=== PATIENT | male | born 1945 | race Caucasian/White ===

== ENCOUNTER 2016-06-30 18:10 | Emergency (ER) | payer MEDICARE, OTHER ==
[~2016-06-30] VITALS: Ht 177.8 cm; Wt 93.0 kg
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
[2016-06-30] MEDS ORDERED: FLUT15.88 NS (18:34)
[2016-06-30] MEDS ORDERED: CLON0.2T PO (18:34)
[2016-06-30] MEDS ORDERED: ATEN50TA PO (18:34)
[2016-06-30] MEDS ORDERED: MAG1CAPS4 PO (18:34)
[2016-06-30] MEDS ORDERED: HYDR25TA4 PO (18:34)
[2016-06-30] MEDS ORDERED: ALLO300T2 PO (18:34)
[2016-06-30] MEDS ORDERED: TERB30CR15 TP (18:34)
[2016-06-30 18:55] LABS: BASOPHILS % (AUTO) 0 % (0-10); EOSINOPHILS # (AUTO) 0.1 10^3/uL (0.0-0.3); EOSINOPHILS % (AUTO) 1 % (0-10); LYMPHOCYTES % (AUTO) 13 % (12-44); MEAN CORPUSCULAR HEMOGLOBIN 33 PG (25-34); MEAN CORPUSCULAR HGB CONC 34 G/DL (32-36); MEAN CORPUSCULAR VOLUME 97 FL (80-99); MEAN PLATELET VOLUME 9.6 FL (7.4-10.4); MONOCYTES % (AUTO) 7 % (0-12); NEUTROPHILS # (AUTO) 12.5 X 10^3 (1.8-7.8); NEUTROPHILS % (AUTO) 80 % (42-75); PLATELET COUNT 224 10^3/uL (130-400); RED BLOOD COUNT 4.06 10^6/uL (4.35-5.85); WHITE BLOOD COUNT 15.6 10^3/uL (4.3-11.0)
[2016-06-30 18:59] LABS: KETONES,URINE NEGATIVE (NEGATIVE); LEUKOCYTE ESTERASE ,URINE 3+ (NEGATIVE); NITRITE,URINE POSITIVE (NEGATIVE); PH,URINE 6 (5-9); PROTEIN,URINE 4+ (NEGATIVE); UROBILINOGEN,URINE 8 MG/DL (NORMAL)
[2016-06-30 19:09] LABS: BILIRUBIN,URINE NEGATIVE (NEGATIVE); WBC,URINE TNTC /HPF
[2016-06-30 19:14] LABS: ALANINE AMINOTRANSFERASE 16 U/L (0-55); ALBUMIN 4.1 G/DL (3.2-4.5); ANION GAP 12 MMOL/L (5-14); ASPARTATE AMINO TRANSFERASE 30 U/L (5-34); BILIRUBIN,TOTAL 1.4 MG/DL (0.1-1.0); BLOOD UREA NITROGEN 20 MG/DL (7-18); BUN/CREATININE RATIO 18; CALCIUM 9.1 MG/DL (8.5-10.1); CARBON DIOXIDE 25 MMOL/L (21-32); CHLORIDE 102 MMOL/L (98-107); CREATININE SERUM 1.13 MG/DL (0.60-1.30); GFR ESTIMATED > 60; GLUCOSE 114 MG/DL (70-105); POTASSIUM 3.1 MMOL/L (3.6-5.0); SODIUM 139 MMOL/L (135-145); TOTAL PROTEIN 7.2 G/DL (6.4-8.2)
[2016-06-30 19:15] LABS: BAND NEUTROPHILS 5 %; BASOPHILS % (MANUAL) 0 %; EOSINOPHILS % (MANUAL) 0 %; LYMPHOCYTES % (MANUAL) 19 %; NEUTROPHILS % (MANUAL) 74 %
[2016-06-30] MEDS ORDERED: LIDOCAINE 1% INJ 20 ML (XYLOCAINE) VIAL INJ ONE (19:15)
[2016-06-30] MEDS ORDERED: cefTRIAXone 1 GM (ROCEPHIN) VIAL IM ONE (19:15)
[2016-06-30] MEDS ORDERED: CEFD300C3 PO (19:19)
[2016-06-30] MEDS ORDERED: KCL 20 MEQ TAB (K-DUR) PO ONE (19:30)
[2016-06-30 19:45] VITALS: BP 131/71
[2016-07-10] MEDS ORDERED: TAMS0.4C2 PO (09:40)
[2016-07-10] MEDS ORDERED: FINA5TAB6 PO (09:40)
[2016-07-10] MEDS ORDERED: ACET-2422 PO (12:00)
[2016-07-11] MEDS ORDERED: CYAN500T2 PO (11:31)
[2016-07-11] MEDS ORDERED: CEFD300C3 PO (11:31)
[2016-07-11] MEDS ORDERED: ASPI-999 PO (11:31)
[2016-07-11] MEDS ORDERED: SAW/1TAB2 PO (11:31)
[2016-07-11] MEDS ORDERED: POTA10TA36 PO (11:31)
[2016-07-14] MEDS ORDERED: LEVO750T39 PO (10:47)
[2016-07-14] MEDS ORDERED: CIPR-225 PO (12:38)
== END 2016-06-30 19:45 | disposition home or self-care (01) ==
LOC: ER 18:17
DX: N39.0 Urinary tract infection, site not specified (principal); I10 Essential (primary) hypertension; Z79.899 Other long term (current) drug therapy; Z96.0 Presence of urogenital implants
CPT/HCPCS: 36415; 80053; 81000; 83605; 85007; 85027; 87040; 87077; 87088; 87186; 96372; 99281

== ENCOUNTER 2016-07-25 09:50 | Outpatient (CLI) | payer MEDICARE ==
[~2016-07-25] VITALS: Ht 180.3 cm; Wt 90.3 kg
[~2016-07-25 09:50] MED LIST: ACET-2422 PO; ALLO300T2 PO; ASPI-999 PO; ATEN50TA PO; CEFD300C3 PO; CIPR-225 PO; CLON0.2T PO; CYAN500T2 PO; FINA5TAB6 PO; FLUT15.88 NS; HYDR25TA4 PO; LEVO750T39 PO; MAG1CAPS4 PO; POTA10TA36 PO; SAW/1TAB2 PO; TAMS0.4C2 PO; TERB30CR15 TP
[2016-07-25 09:58] VITALS: BP 127/70
[2016-07-25 10:46] LABS: BASOPHILS % (AUTO) 0 % (0-10); EOSINOPHILS # (AUTO) 0.4 10^3/uL (0.0-0.3); EOSINOPHILS % (AUTO) 5 % (0-10); LYMPHOCYTES # (AUTO) 2.3 X 10^3 (1.0-4.0); LYMPHOCYTES % (AUTO) 29 % (12-44); MEAN CORPUSCULAR HEMOGLOBIN 32 PG (25-34); MEAN CORPUSCULAR HGB CONC 34 G/DL (32-36); MEAN CORPUSCULAR VOLUME 96 FL (80-99); MEAN PLATELET VOLUME 9.3 FL (7.4-10.4); MONOCYTES # (AUTO) 0.4 X 10^3 (0.0-1.0); MONOCYTES % (AUTO) 5 % (0-12); NEUTROPHILS # (AUTO) 4.9 X 10^3 (1.8-7.8); NEUTROPHILS % (AUTO) 60 % (42-75); PLATELET COUNT 294 10^3/uL (130-400); RED BLOOD COUNT 3.96 10^6/uL (4.35-5.85); RED CELL DISTRIBUTION WIDTH 13.3 % (10.0-14.5); WHITE BLOOD COUNT 8.1 10^3/uL (4.3-11.0)
[2016-07-25 11:12] LABS: ANION GAP 8 MMOL/L (5-14); BLOOD UREA NITROGEN 14 MG/DL (7-18); BUN/CREATININE RATIO 15; CALCIUM 9.2 MG/DL (8.5-10.1); CARBON DIOXIDE 29 MMOL/L (21-32); CHLORIDE 104 MMOL/L (98-107); CREATININE SERUM 0.96 MG/DL (0.60-1.30); GFR ESTIMATED > 60; GLUCOSE 96 MG/DL (70-105); POTASSIUM 3.2 MMOL/L (3.6-5.0); SODIUM 141 MMOL/L (135-145)
== END 2016-07-25 10:25 | disposition home or self-care (01) ==
LOC: PREOP 09:50
PROVIDERS: ATTEND Urology
DX: Z01.812 Encounter for preprocedural laboratory examination (principal); Z11.2 Encounter for screening for other bacterial diseases; R33.9 Retention of urine, unspecified
CPT/HCPCS: 36415; 80048; 85025; 87081

== ENCOUNTER 2016-07-26 06:42 | Day surgery (SDC) | payer MEDICARE ==
[~2016-07-26] VITALS: Ht 180.3 cm; Wt 92.2 kg
[2016-07-26] MEDS ORDERED: cefTRIAXone 1 GM (ROCEPHIN) VIAL ONE (06:58)
[2016-07-26] MEDS ORDERED: NS (IVPB) 50 ML ONE (06:59)
[2016-07-26] MEDS: LACTATED RINGERS 1,000 ML IV PRN ×2 (07:00→08:58)
--- NOTE | 2016-07-26 07:04 | Progress Note-Pre Operative ---
Pre-Operative Progress Note H&P Reviewed The H&P was reviewed, patient examined and no changes noted. Date H&P Reviewed: July 26, 2016 Time H&P Reviewed: 07:03 Pre-Operative Diagnosis: BPH WITH URINE RETENTION MITALI GOLDEN MD July 26, 2016 7:03 am
--- NOTE | 2016-07-26 07:04 | Progress Note-Post Operative ---
Post-Operative Progess Note Surgeon (s)/Produce Field Merchandiser (s) Surgeon MITALI GOLDEN MD Produce Field Merchandiser: N/A Pre-Operative Diagnosis BPH WITH URINE RETENTION Post-Operative Diagnosis SAME Procedure & Operative Findings Date of Procedure 07/26/16 Procedure Preformed/Findings TURP Anesthesia Type SPINAL Estimated Blood Loss Estimated blood loss (mL): 100cc Specimens/Packing Specimens Removed PROSTATE CHIPS Packing: N/A MITALI GOLDEN MD July 26, 2016 7:04 am
[2016-07-26 07:14] VITALS: BP 132/71
[2016-07-26] MEDS ORDERED: MILK OF MAGNESIA 400 MG/5 ML 30 ML UDC PO PRN (07:15)
[2016-07-26] MEDS ORDERED: HYDROcodone/APAP 10 MG/325 MG (LORTAB) TAB PO PRN (07:15)
[2016-07-26] MEDS ORDERED: BELLADONNA ALK/OPIUM (B & O) 30 MG SUPP PR PRN (07:15)
[2016-07-26] MEDS ORDERED: cefTRIAXone 1 GM/NS 50 ML IVPB IV ONE ×2 (07:15)
[2016-07-26] MEDS ORDERED: ZOLPIDEM 5 MG (AMBIEN) TAB PO PRN (07:15)
[2016-07-26] MEDS ORDERED: MIDAZOLAM 2 MG/2 ML (VERSED) VIAL ONE (08:22)
[2016-07-26] MEDS ORDERED: fentaNYL INJECTION 100 MCG/2 ML AMP ONE (08:22)
[2016-07-26] MEDS ORDERED: LACTATED RINGERS 2,000 ML IV ONE (09:40)
[2016-07-26] MEDS: LACTATED RINGERS 1,000 ML IV SCH ×4 (10:20→22:10)
[2016-07-26] MEDS ORDERED: proPOfol 200 MG/20 ML (DIPRIVAN) VIAL IV ONE (10:24)
[2016-07-26 12:00] VITALS: BP 156/74
[2016-07-26] MEDS: DOCUSATE SODIUM 100 MG (COLACE) CAP PO SCH ×3 (14:16→20:16)
[2016-07-26 16:25] VITALS: BP 154/79
[2016-07-26] MEDS ORDERED: NON-FORMULARY MEDICATION 1 EA EA (Acetaminophen (Acetaminophen ER) 1,300 MG) PO PRN (18:45)
[2016-07-26 19:45] VITALS: BP 160/70
[2016-07-26] MEDS: cloNIDine 0.2 MG (CATAPRES) TAB PO SCH ×2 (20:14→20:17)
[2016-07-26] MEDS: FLUTICASONE NASAL SPRAY (FLONASE) 16 GM BTL NS SCH (20:14)
[2016-07-26] MEDS: ACETAMINOPHEN 500 MG TAB (TYLENOL) PO PRN (20:29)
[2016-07-26] MEDS ORDERED: NON-FORMULARY MEDICATION 1 EA EA (Fluticasone Propionate 2 SPRAYS) NS SCH (21:00)
[2016-07-27 00:05] VITALS: BP 133/73
[2016-07-27 04:45] VITALS: BP 139/76
[2016-07-27] MEDS: LACTATED RINGERS 1,000 ML IV SCH ×3 (06:12→15:33)
[2016-07-27] MEDS ORDERED: LEVOFLOXACIN 500 MG/100 ML IV 100 ML IV ONE (07:15)
[2016-07-27 08:00] VITALS: BP 162/79
[2016-07-27] MEDS: DOCUSATE SODIUM 100 MG (COLACE) CAP PO SCH ×2 (08:23→19:59)
[2016-07-27] MEDS: ALLOPURINOL 300 MG (ZYLOPRIM) TAB PO SCH (08:23)
[2016-07-27] MEDS: ATENOLOL 50 MG (TENORMIN) TAB PO SCH (08:23)
[2016-07-27] MEDS: cloNIDine 0.2 MG (CATAPRES) TAB PO SCH ×3 (08:23→20:00)
[2016-07-27] MEDS: HYDROCHLOROTHIAZIDE 25 MG (HCTZ) TAB PO SCH (08:23)
--- NOTE | 2016-07-27 09:41 | Progress Note-Urology ---
Progress Note-Urology Progress Notes/Assess & Plan Progress/Assessment & Plan doing very well. urine helen and clear. plan per orders Final Diagnosis urine retention and bph MITALI GOLDEN MD July 27, 2016 9:41 am
--- NOTE | 2016-07-27 09:58 | Diagnostic Imaging Report ---
EXAMINATION: Renal ultrasound. INDICATION: Left hydronephrosis. FINDINGS: The right kidney is 11.6 and the left kidney is 11.5 cm in length. There is left-sided mild hydronephrosis with moderate dilatation of the visualized portions of the left ureter seen. The urinary bladder demonstrates mild mucosal thickening, more prominent along the posterior right side aspect. There is a Elam catheter in the bladder. A simple cyst in the mid left kidney is seen. IMPRESSION: There is mild left pelvic caliectasis and dilatation of the visualized portions of the left ureter. Nonspecific urinary bladder wall thickening. Underlying etiologies include infection, chronic obstructive changes, or possibly neoplastic. Dictated by: Dictated on workstation # [id number]
--- NOTE | 2016-07-27 10:16 | OPERATIVE REPORT ---
DATE OF SERVICE: 07/26/2016 PREOPERATIVE DIAGNOSIS: Benign prostatic hypertrophy with urinary retention. POSTOPERATIVE DIAGNOSIS: Benign prostatic hypertrophy with urinary retention. OPERATION PERFORMED: Transurethral resection of the prostate. SURGEON: MD Poonam ANESTHESIA: Spinal. COMPLICATIONS: None. PROCEDURE IN DETAIL: Under satisfactory spinal anesthesia, the patient in the lithotomy position, genitalia were prepped and draped in the usual sterile fashion. Urethra was dilated with [place] sounds to #30 [place] easily to accommodate the 27-[place] Woodard resectoscope. Inspection of the bladder again did not visualize any tumor or lesions in the bladder anymore. There was some swelling of the area of the intramural portion of the left ureter, but there was efflux there and no actual lesion. I went ahead and started the resection of the prostate first at the roof to 11 o'clock position and then the lateral lobes and finally the floor and apical tissue. Capsule was visualized in many ____. Bleeders were cauterized as the resection was proceeding. Resection was adequate and hemostasis satisfactory. Prostatic chips were evacuated and cystoscopy confirmed intact ureteric orifices, veru and sphincter with good reflex. Resectoscope was then removed and a 22-[place]er 30 cc Balloon catheter was inserted in the bladder . The balloon was inflated to 45 cc and put it on some traction. Corrective continuous bladder irrigation, the return of which was clear. Estimated blood loss 100 cc, none of which was replaced. The patient tolerated the procedure and anesthesia well and was sent to the recovery room in a stable condition. PLAN: We will get a renal ultrasound tomorrow to check on the left hydro and manage accordingly. Job ID: [id number] DocumentID: [id number] Dictated Date: 07/26/2016 09:55:57 Flexible Machining System Machinist Date: 07/26/2016 23:50:14 Dictated By: MITALI GOLDEN MD
[2016-07-27 12:00] VITALS: BP 114/65
--- NOTE | 2016-07-27 12:34 | Anesthesia-General Post-Op ---
General Patient Condition Mental Status/LOC: Same as Preop Cardiovascular: Satisfactory Nausea/Vomiting: Absent Respiratory: Satisfactory Pain: Controlled Complications: Absent Post Op Complications Complications None Follow Up Care/Instructions Patient Instructions None needed. Anesthesia/Patient Condition Patient Condition Patient is doing well, no complaints, stable vital signs, no apparent adverse anesthesia problems. No complications reported per nursing. JONA STAHL CRNA July 27, 2016 12:34
[2016-07-27 15:30] VITALS: BP 127/68
[2016-07-27] MEDS: FLUTICASONE NASAL SPRAY (FLONASE) 16 GM BTL NS SCH (19:59)
[2016-07-27 20:20] VITALS: BP 156/86
[2016-07-27] MEDS: ACETAMINOPHEN 500 MG TAB (TYLENOL) PO PRN (20:20)
[2016-07-28] VITALS: BP 128/70
[2016-07-28] MEDS: LACTATED RINGERS 1,000 ML IV SCH (06:41)
[2016-07-28 08:00] VITALS: BP 123/74
[2016-07-28] MEDS: DOCUSATE SODIUM 100 MG (COLACE) CAP PO SCH (08:35)
[2016-07-28] MEDS: HYDROCHLOROTHIAZIDE 25 MG (HCTZ) TAB PO SCH (08:36)
[2016-07-28] MEDS: cloNIDine 0.2 MG (CATAPRES) TAB PO SCH (08:36)
[2016-07-28] MEDS: ATENOLOL 50 MG (TENORMIN) TAB PO SCH (08:36)
[2016-07-28] MEDS: ALLOPURINOL 300 MG (ZYLOPRIM) TAB PO SCH (08:36)
--- NOTE | 2016-07-28 09:35 | Progress Note-Urology ---
Progress Note-Urology Progress Notes/Assess & Plan Progress/Assessment & Plan AFEBRILE, VSS. VOIDING WELL BUT HAS AROUND 400CC PVR. URINE CLEAR AND PINKISH. PLAN PER ORDERS Final Diagnosis URINE RETENTION WITH BPH AND NEUROGENIC BLADDER MITALI GOLDEN MD July 28, 2016 09:35
--- NOTE | 2016-07-28 09:40 | Discharge Inst-Urology ---
Discharge Inst-Urology Discharge Medications New, Converted, or Re-newed RX: Call to Patient Pharmacy Patient Instructions/Follow Up Plan Straight cath and then discharge. C to visit daily for PVR and record amount. Office next 10:30am with PVR records. Rest till then. Please call Rx for Cipro 500mgBID fro 7 days and Urecholine 25mg QID QC & HS # 100 Stay off ASA, Proscar, and Flomax Increase oral fluids for 48 hours and then as needed. Keep bowels soft and moving. Showers, no bath If questions or concerns contact your physician Or seek help at emergency department. MITALI GOLDEN MD July 28, 2016 09:40
[2016-07-28 12:00] VITALS: BP 123/74
== END 2016-07-28 12:15 | disposition home health service (06) ==
LOC: SDC 06:42 → 4TH 12:15 → SDC 07-28 12:15
PROVIDERS: ATTEND Urology
DX: N40.1 Benign prostatic hyperplasia with lower urinary tract symptoms (principal); R33.8 Other retention of urine; N31.9 Neuromuscular dysfunction of bladder, unspecified; I25.10 Atherosclerotic heart disease of native coronary artery without angina pectoris; I10 Essential (primary) hypertension; E78.5 Hyperlipidemia, unspecified; Z79.899 Other long term (current) drug therapy
CPT/HCPCS: 76770; 86850; 86900; 86901

== ENCOUNTER → 2016-09-30 | Outpatient (CLI) | payer MEDICARE ==
[~2016-09-30] MED LIST changes: +CATHETER FLUSH 10 ML SYR IV PRN; +IOHEXOL 350 MG/ML 100 ML (OMNIPAQUE 350) VIAL IV ONE; +NS 100 ML (IVPB) BAG IV ONE
[2016-09-30 14:27] LABS: BLOOD UREA NITROGEN 17 MG/DL (7-18); BUN/CREATININE RATIO 18; CREATININE SERUM 0.97 MG/DL (0.60-1.30); GFR ESTIMATED > 60
--- NOTE | 2016-09-30 16:36 | Diagnostic Imaging Report ---
PROCEDURE: CT abdomen and pelvis with and without contrast. TECHNIQUE: Precontrast acquisitions were acquired through the abdomen and pelvis. Multiple contiguous axial images were obtained through the abdomen and pelvis after the administration of intravenous contrast. INDICATION: Further evaluation of left-sided hydronephrosis. COMPARISON: CT abdomen and pelvis of 07/11/2016. FINDINGS: Lower chest: The lung bases are clear. No pericardial or pleural effusion. Stable small fat-containing Bochdalek hernia on the right. Peritoneum: No free intraperitoneal air or fluid. Liver and biliary system: The liver is normal. Stable peripheral rim calcifications of the gallbladder. Spleen and Pancreas: Spleen is normal. The pancreas enhances normally without mass lesion or peripancreatic inflammatory changes. Adrenals: Normal. tract: There is a prominent left-sided extrarenal pelvis which is unchanged. Decreased dilatation of the renal calyces since prior examination. There remains a moderate dilation of the left ureter without distal obstructing lesion. There is no contrast opacifying the ureter on delayed-phase imaging suggestive of distal obstruction near the UVJ. Right ureter is normal in caliber. No right-sided hydronephrosis. Bilateral renal cysts are unchanged. Urinary bladder no longer demonstrates diffuse wall thickening. There is likely mild residual wall thickening. Prostate is not enlarged. There appear to be changes of TURP. GI tract: Stomach is partially distended with fluid and food debris. No bowel obstruction. Sigmoid and descending colon diverticulosis without diverticulitis. The appendix is not seen. Vasculature and Lymph nodes: Normal caliber aorta with moderate atherosclerotic plaquing. No abdominal or pelvic lymphadenopathy. Musculoskeletal: No concerning osseous lesion. IMPRESSION: 1. Improved but persistent moderate left hydroureter. There is no opacification of the left ureter on delayed-phase images by contrast. This may be due to increased pressures within the left ureter secondary to partial obstruction near the UVJ. Nuclear medicine MAG3 scan of the kidneys could be performed for further assessment. 2. Marked improvement in circumferential wall thickening of the urinary bladder which likely was due to cystitis. There remains mild circumferential trabeculated thickening of the bladder wall, likely due to chronic partial bladder outlet obstruction as there are changes of TURP. 3. Stable colonic diverticulosis without diverticulitis. Dictated by: Dictated on workstation # [id number]
--- NOTE | 2016-09-30 17:36 | Diagnostic Imaging Report ---
INDICATION: Hydronephrosis. COMPARISON: CT abdomen and pelvis performed one hour prior. FINDINGS: There is a small amount of retained contrast material within the proximal renal collecting system. Mild to moderately dilated left ureter is noted. Small amount of contrast still is present in the right renal collecting system. Contrast distends the urinary bladder. Nonobstructive bowel gas pattern. Lung bases are clear. IMPRESSION: 1. There is excretion of contrast material from the left kidney into the dilated ureter on this delayed-phase image. This indicates there is no high-grade obstruction of the left distal ureter. Dictated by: Dictated on workstation # [id number]
== END ==
LOC: RAD 13:24
PROVIDERS: ATTEND Urology
DX: N13.4 Hydroureter (principal); K57.30 Diverticulosis of large intestine without perforation or abscess without bleeding
CPT/HCPCS: 36415; 74020; 74178; 82565; 84520